=== PATIENT | male | born 1985 | race Asian ===

== ENCOUNTER 2020-06-06 13:30 | Inpatient (IN) | payer MEDICAID ==
[2020-06-06] VITALS (8 sets, daily range): BP systolic 113–126; BP diastolic 72–88
[~2020-06-06] VITALS: Ht 160 cm; Wt 78.1 kg
[2020-06-06] MEDS ORDERED: MORPHINE SULFATE 10 MG/ML VIAL. IV ONE (14:00)
[2020-06-06 14:29] LABS: BASO % 1 % (0-3); EOS # 0.1 x10^3/uL (0.0-0.7); EOS % 1 % (0-3); HEMATOCRIT 43.6 % (39.0-53.0); HEMOGLOBIN 15.1 g/dL (13.0-17.5); LYMPH # 2.9 x10^3/uL (1.0-4.8); LYMPH % 38 % (24-48); MEAN CORPUSCULAR HEMOGLOBIN 32 pg (25-35); MEAN CORPUSCULAR HGB CONC 35 g/dL (31-37); MEAN CORPUSCULAR VOLUME 91 fL (79-100); MONO # 0.5 x10^3/uL (0.0-1.1); MONO % 6 % (0-9); NEUT # 4.1 x10^3/uL (1.8-7.7); NEUT % 54 % (31-73); PLATELET COUNT 223 x10^3/uL (140-400); RED BLOOD COUNT 4.78 x10^6/uL (4.30-5.70); RED CELL DISTRIBUTION WIDTH 13.6 % (11.5-14.5); WHITE BLOOD COUNT 7.5 x10^3/uL (4.0-11.0)
[2020-06-06] MEDS ORDERED: HYDROmorphone 2 MG/ML VIAL IVP ONE ×3 (14:30→17:00)
[2020-06-06] MEDS ORDERED: IV NORMAL SALINE 1000ML BAG 1,000 ML IV ONE ×2 (14:30→16:45)
[2020-06-06] MEDS ORDERED: ONDANSETRON PF 4 MG/2 ML VIAL. IVP ONE (14:30)
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
[2020-06-06 14:40] LABS: CALCIUM 8.7 mg/dL (8.5-10.1); GFR 85.5; POTASSIUM 3.8 mmol/L (3.5-5.1)
[2020-06-06 14:41] LABS: PROTHROMBIN TIME PATIENT 11.8 SEC (11.7-14.0)
[2020-06-06 14:46] LABS: ALBUMIN 3.7 g/dL (3.4-5.0); TOTAL BILIRUBIN 0.2 mg/dL (0.2-1.0); TOTAL PROTEIN 7.3 g/dL (6.4-8.2)
[2020-06-06] MEDS ORDERED: fentaNYL PF VIAL 100 MCG/2 ML VIAL ONE ×2 (16:24→20:03)
[2020-06-06] MEDS ORDERED: LIDOCAINE 2% PF 5 ML VIAL. ONE (16:24)
[2020-06-06] MEDS ORDERED: PROPOFOL 10 MG/ML (20ML) VIAL. IV ONE (16:24)
[2020-06-06] MEDS ORDERED: MORPHINE SULFATE 4 MG/ML VIAL. IV PRN ×2 (16:45→20:30)
[2020-06-06] MEDS ORDERED: ONDANSETRON PF 4 MG/2 ML VIAL. IV PRN (16:45)
[2020-06-06] MEDS ORDERED: DIPH,PERTUSS(ACELL),TET VAC/PF 0.5 ML SYRINGE. VAX IM ONE (17:15)
[2020-06-06] MEDS ORDERED: BUPIVACAINE MPF 0.5% 30 ML VIAL. ONE (17:26)
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
[2020-06-06] MEDS ORDERED: ceFAZolin SODIUM IV Push 1 GM VIAL. IVP ONE (18:08)
[2020-06-06] MEDS ORDERED: SUCCINYLCHOLINE 200 MG/10 ML VIAL. ONE (18:15)
[2020-06-06] MEDS ORDERED: DEXAMETHASONE SOD PHOS 4 MG/ML VIAL ONE (18:28)
[2020-06-06] MEDS ORDERED: DESFLURANE 61 TO 120 MINUTES IH ONE (18:28)
[2020-06-06] MEDS ORDERED: ONDANSETRON PF 4 MG/2 ML VIAL. ONE (18:47)
[2020-06-06] MEDS ORDERED: IV RINGERS,LACTATED 1000ML 1,000 ML IV SCH (19:09)
[2020-06-06] MEDS ORDERED: PROCHLORPERAZINE 10 MG/2 ML VIAL. IV PRN (19:15)
[2020-06-06] MEDS ORDERED: LIDOCAINE 1% PF 2 ML VIAL. ID PRN (19:15)
--- NOTE | 2020-06-06 19:18 | NUR ---
Patient admitted to room 1809 and taken to the OR 1819.
[2020-06-06] MEDS ORDERED: MORPHINE SULFATE 10 MG/ML VIAL. ONE (19:19)
--- NOTE | 2020-06-06 19:47 | RAD ---
Intraoperative views of right wrist 06/06/2020. Reason for exam: Fixation. 0.1 minutes fluoroscopy time was used and 3 images are provided. These show placement of fixation plates and screws along the distal radius and ulna, with reduction of the displacement to more anatomic alignment. No other abnormality is seen. IMPRESSION: Placement of plates and screws with reduction of the displaced fractures. Electronically signed by: Bello John Jr., MD (06/06/2020 7:44 PM) DIANA
[2020-06-06] MEDS ORDERED: KETOROLAC 60 MG/2 ML VIAL. ONE ×2 (19:50→19:51)
[2020-06-06] MEDS: fentaNYL PF VIAL 100 MCG/2 ML VIAL IVP PRN ×2 (20:05→20:10)
[2020-06-06] MEDS ORDERED: fentaNYL PF VIAL 100 MCG/2 ML VIAL IVP PRN (20:15)
[2020-06-06] MEDS: HYDROmorphone 2 MG/ML VIAL IVP PRN ×4 (20:25→20:55)
[2020-06-06] MEDS ORDERED: HYDROmorphone 2 MG/ML VIAL ONE (20:25)
--- NOTE | 2020-06-06 21:04 | PDOC4 ---
Operative Note Operative Note Date of surgery: 06/06/2020 Preoperative diagnosis: Closed right both bone forearm fracture with complete displacement Postoperative diagnosis: Same Operative procedure: Operative reduction internal fixation with plate and screw fixation of right both bone forearm fracture Surgeon: Jean-Paul Anesthesia: General Estimated blood loss: 20 cc Tourniquet time: 70 minutes Complications: None Operative indications: Please see my dictated orthopedic consultation for detailed operative indications Operative text: Patient was identified procedure verified patient placed in the supine position on the operating table. After adequate amounts of general anesthesia were administered the right upper extremity was prepped and draped in standard sterile fashion with an upper arm tourniquet. After timeout was performed patient procedure identified and verified the right arm was exsanguinated with Esmarch bandage tourniquet inflated to 250 mmHg fracture was located under fluoroscopic guidance and a volar Kenny approach was carried out to the distal radius subperiosteal dissection was carried out and after anatomic reduction a 7 hole Marycarmen small frag reconstruction plate was used with nonlocking screws excellent compression was obtained and anatomic alignment was noted under fluoroscopic guidance. A longitudinal incision was then carried out centered on the ulnar fracture subperiosteal dissection was carried out and a 6- hole reconstruction plate was used and anatomic reduction again carried out with interfragmentary fixation and stabilization with remaining bicortical screws of appropriate length. Anatomic reduction was obtained under multiple fluoroscopic views and hardware placement and length was verified under fluoroscopic guidance. Thorough irrigation carried out normal saline solution subcutaneous closure accomplished with buried Vicryl suture skin closure with kevin sterile soft dressings were placed fingers were noted to be warm pink following deflati on of the tourniquet after total tourniquet time of approximately 70 minutes. Patient was returned to recovery room in stable condition having tolerated procedure well MARY FAIR MD Jun 06, 2020 21:04
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
[2020-06-07] VITALS (8 sets, daily range): BP systolic 102–138; BP diastolic 61–71
[2020-06-07] MEDS ORDERED: ONDANSETRON PF 4 MG/2 ML VIAL. IVP PRN (00:45)
[2020-06-07] MEDS ORDERED: oxyCODONE IR 5 MG TABLET PO PRN (00:45)
[2020-06-07] MEDS ORDERED: HYDROcodone/APAP 5/325MG 1 TAB TABLET PO PRN (00:45)
--- NOTE | 2020-06-07 01:07 | PDOC1 ---
History and Physical Date of Admission Date of Admission DATE: 06/06/20 TIME: 17:47 Identification/Chief Complaint Chief Complaint Right forearm fracture Source Source: Caregiver History of Present Illness History of Present Illness Patient is a 34 yo male who presents to the ED with right forearm injury sustained after rolling his golf cart earlier this afternoon. He report right forearm pain, 10/10, following the injury. Pain aggravated by movement, alleviated with pain medication. He denies head injury or loss of consciousness. Past Medical History Past Medical History None Past Surgical History Past Surgical History None Family History Family History None Social History Smoke: <1 pack per day ALCOHOL: none Drugs: None Current Problem List Problem List Problems Medical Problems: (1) Fracture, radius, distal Status: Acute (2) Ulna distal fracture Status: Acute Current Medications Current Medications Current Medications Morphine Sulfate (Morphine Sulfate) 5 mg 1X ONCE IV Last administered on 06/06/20at 14:38; Start 06/06/20 at 14:00; Stop 06/06/20 at 14:12; Status DC Sodium Chloride 1,000 ml @ 1,000 mls/hr 1X ONCE IV Last administered on 06/06/20at 14:39; Start 06/06/20 at 14:30; Stop 06/06/20 at 15:29; Status DC Hydromorphone HCl (Dilaudid) 1 mg 1X ONCE IVP Last administered on 06/06/20at 14:46; Start 06/06/20 at 14:30; Stop 06/06/20 at 14:31; Status DC Ondansetron HCl (Zofran) 4 mg 1X ONCE IVP Last administered on 06/06/20at 14:46; Start 06/06/20 at 14:30; Stop 06/06/20 at 14:31; Status DC Hydromorphone HCl (Dilaudid) 2 mg 1X ONCE IVP Last administered on 06/06/20at 15:32; Start 06/06/20 at 15:30; Stop 06/06/20 at 15:31; Status DC Propofol (Diprivan) 200 mg STK-MED ONCE IV ; Start 06/06/20 at 16:24; Stop 06/06/20 at 16:24; Status DC Lidocaine HCl (Lidocaine Pf 2% Vial) 5 ml STK-MED ONCE .ROUTE ; Start 06/06/20 at 16:24; Stop 06/06/20 at 16:24; Status DC Fentanyl Citrate (Fentanyl 2ml Vial) 100 mcg STK-MED ONCE .ROUTE ; Start 06/06/20 at 16:24; Stop 06/06/20 at 16:24; Status DC Ondansetron HCl (Zofran) 4 mg PRN Q8HRS PRN IV NAUSEA/VOMITING; Start 06/06/20 at 16:45; Stop 06/07/20 at 16:44 Morphine Sulfate (Morphine Sulfate) 4 mg PRN Q2HR PRN IV PAIN; Start 06/06/20 at 16:45; Stop 06/07/20 at 16:44 Sodium Chloride 1,000 ml @ 100 mls/hr 1X ONCE IV Last administered on 06/06/20at 17:06; Start 06/06/20 at 16:45; Stop 06/07/20 at 02:44 Diphtheria/ Tetanus/Acell Pertussis (ADACEL TDap SYRINGE) 0.5 ml ONCE ONCE VAX IM Last administered on 06/06/20at 17:09; Start 06/06/20 at 17:15; Stop 06/06/20 at 17:16; Status DC Hydromorphone HCl (Dilaudid) 1 mg 1X ONCE IVP Last administered on 06/06/20at 17:07; Start 06/06/20 at 17:00; Stop 06/06/20 at 17:03; Status DC Bupivacaine HCl (Sensorcaine Mpf 0.5%) 30 ml STK-MED ONCE .ROUTE Last administered on 06/06/20at 18:38; Start 06/06/20 at 17:26; Stop 06/06/20 at 17:26; Status DC Cefazolin Sodium (Ancef) 1 gm STK-MED ONCE IVP ; Start 06/06/20 at 18:08; Stop 06/06/20 at 18:08; Status DC Succinylcholine Chloride (Anectine) 200 mg STK-MED ONCE .ROUTE ; Start 06/06/20 at 18:15; Stop 06/06/20 at 18:15; Status DC Dexamethasone Sodium Phosphate (Decadron) 4 mg STK-MED ONCE .ROUTE ; Start 06/06/20 at 18:28; Stop 06/06/20 at 18:28; Status DC Desflurane (Suprane) 60 ml STK-MED ONCE IH ; Start 06/06/20 at 18:28; Stop 06/06/20 at 18:28; Status DC Ondansetron HCl (Zofran) 4 mg STK-MED ONCE .ROUTE ; Start 06/06/20 at 18:47; Stop 06/06/20 at 18:47; Status DC Cefazolin Sodium/ Dextrose 50 ml @ 100 mls/hr 1X ONCE IV Last administered on 06/06/20at 18:19; Start 06/06/20 at 19:30; Stop 06/06/20 at 19:59; Status DC Ringer's Solution 1,000 ml @ 30 mls/hr Q24H IV ; Start 06/06/20 at 19:09; Stop 06/07/20 at 07:08 Lidocaine HCl (Xylocaine-Mpf 1% 2ml Vial) 2 ml PRN 1X PRN ID PRIOR TO IV START; Start 06/06/20 at 19:15; Stop 06/07/20 at 19:14 Prochlorperazine Edisylate (Compazine) 5 mg PACU PRN PRN IV NAUSEA, MRX1 Last administered on 06/06/20at 20:31; Start 06/06/20 at 19:15; Stop 06/07/20 at 19:14 Morphine Sulfate (Morphine Sulfate) 10 mg STK-MED ONCE .ROUTE ; Start 06/06/20 at 19:19; Stop 06/06/20 at 19:19; Status DC Ketorolac Tromethamine (Toradol Im) 60 mg STK-MED ONCE .ROUTE ; Start 06/06/20 at 19:50; Stop 06/06/20 at 19:50; Status DC Ketorolac Tromethamine (Toradol Im) 60 mg STK-MED ONCE .ROUTE ; Start 06/06/20 at 19:51; Stop 06/06/20 at 19:51; Status DC Fentanyl Citrate (Fentanyl 2ml Vial) 100 mcg STK-MED ONCE .ROUTE ; Start 06/06/20 at 20:03; Stop 06/06/20 at 20:03; Status DC Fentanyl Citrate (Fentanyl 2ml Vial) 25 mcg PRN Q5MIN PRN IVP pain; Start 06/06/20 at 20:15; Stop 06/06/20 at 23:59; Status DC Fentanyl Citrate (Fentanyl 2ml Vial) 50 mcg PRN Q5MIN PRN IVP pain Last administered on 06/06/20at 20:10; Start 06/06/20 at 20:30; Stop 06/06/20 at 23:59; Status DC Morphine Sulfate (Morphine Sulfate) 4 mg PRN Q20MIN PRN IV severe pain Last administered on 06/06/20at 20:20; Start 06/06/20 at 20:30; Stop 06/07/20 at 02:00 Hydromorphone HCl (Dilaudid) 2 mg STK-MED ONCE .ROUTE ; Start 06/06/20 at 20:25; Stop 06/06/20 at 20:25; Status DC Hydromorphone HCl (Dilaudid) 0.5 mg PRN Q10MIN PRN IVP pain Last administered on 06/06/20at 20:55; Start 06/06/20 at 20:30; Stop 06/07/20 at 03:00 Ondansetron HCl (Zofran) 4 mg PRN Q6HRS PRN IVP NAUSEA/VOMITING; Start 06/07/20 at 00:45; Status UNV Oxycodone HCl (Roxicodone) 5 mg PRN Q3HRS PRN PO BREAKTHROUGH PAIN; Start 06/07/20 at 00:45; Status UNV Acetaminophen/ Hydrocodone Bitart (Lortab 5/325) 1 tab PRN Q4HRS PRN PO MILD PAIN 1-3; Start 06/07/20 at 00:45; Status UNV Acetaminophen/ Hydrocodone Bitart (Lortab 5/325) 2 tab PRN Q4HRS PRN PO MODERATE PAIN, SEVERE PAIN; Start 06/07/20 at 00:45; Status UNV Docusate Sodium (Colace) 100 mg BID PO ; Start 06/07/20 at 09:00; Status UNV Heparin Sodium (Porcine) (Heparin Sodium) 5,000 unit Q8HRS SQ ; Start 06/07/20 at 06:00; Status UNV Allergies Allergies: Coded Allergies: No Known Drug Allergies (Unverified , 06/06/20) ROS General: No: Chills, Fatigue PSYCHOLOGICAL ROS: No: Concentration difficultie, Hallucinations Eyes: No Blurry vision, No Loss of vision HEENT: No: Sore Throat, Tinnitus ALLERGY AND IMMUNOLOGY: No: Itchy/Watery Eyes, Nasal Congestion Hematological and Lymphatic: No: Bleeding Problems, Brusing Respiratory: No: Cough, Shortness of breath Cardiovascular: No Chest Pain, No Palpitations Gastrointestinal: No Nausea, No Vomiting Genitourinary: No Dysuria, No Hematuria Musculoskeletal: Yes Joint Pain, Yes Muscle Pain Neurological: No Bowel/Bladder ControlChng, No Headaches Skin: No Pruritus, No Rash Physical Exam General: Cooperative, mild distress HEENT: Atraumatic, PERRLA Lungs: Clear to auscultation, Normal air movement Heart: RRR, no jug vein distention Cardiovascular: S1, S2 Abdomen: Normal bowel sounds, Soft Extremities: Other (Right forearm tenderness and swelling) Skin: No rashes, No significant lesion Neuro: Normal tone, Sensation intact Psych/Mental Status: Mental status NL Vitals Vitals Vital Signs Date Time Temp Pulse Resp B/P (MAP) Pulse Ox O2 Delivery O2 Flow Rate FiO2 06/06/20 23:00 97.7 98 18 113/72 (86) 99 Room Air 97.7 06/06/20 21:25 2.0 Labs Labs Laboratory Tests Test 06/06/20 14:05 06/06/20 15:40 White Blood Count 7.5 x10^3/uL (4.0-11.0) Red Blood Count 4.78 x10^6/uL (4.30-5.70) Hemoglobin 15.1 g/dL (13.0-17.5) Hematocrit 43.6 % (39.0-53.0) Mean Corpuscular Volume 91 fL (79-100) Mean Corpuscular Hemoglobin 32 pg (25-35) Mean Corpuscular Hemoglobin Concent 35 g/dL (31-37) Red Cell Distribution Width 13.6 % (11.5-14.5) Platelet Count 223 x10^3/uL (140-400) Neutrophils (%) (Auto) 54 % (31-73) Lymphocytes (%) (Auto) 38 % (24-48) Monocytes (%) (Auto) 6 % (0-9) Eosinophils (%) (Auto) 1 % (0-3) Basophils (%) (Auto) 1 % (0-3) Neutrophils # (Auto) 4.1 x10^3/uL (1.8-7.7) Lymphocytes # (Auto) 2.9 x10^3/uL (1.0-4.8) Monocytes # (Auto) 0.5 x10^3/uL (0.0-1.1) Eosinophils # (Auto) 0.1 x10^3/uL (0.0-0.7) Basophils # (Auto) 0.0 x10^3/uL (0.0-0.2) Prothrombin Time 11.8 SEC (11.7-14.0) Prothromb Time International Ratio 0.9 (0.8-1.1) Activated Partial Thromboplast Time 28 SEC (24-38) Sodium Level 142 mmol/L (136-145) Potassium Level 3.8 mmol/L (3.5-5.1) Chloride Level 104 mmol/L (98-107) Carbon Dioxide Level 29 mmol/L (21-32) Anion Gap 9 (6-14) Blood Urea Nitrogen 25 mg/dL (8-26) Creatinine 1.0 mg/dL (0.7-1.3) Estimated GFR (Cockcroft-Gault) 85.5 BUN/Creatinine Ratio 25 (6-20) Glucose Level 224 mg/dL (70-99) Calcium Level 8.7 mg/dL (8.5-10.1) Total Bilirubin 0.2 mg/dL (0.2-1.0) Aspartate Amino Transf (AST/SGOT) 15 U/L (15-37) Alanine Aminotransferase (ALT/SGPT) 33 U/L (16-63) Alkaline Phosphatase 87 U/L (46-116) Total Protein 7.3 g/dL (6.4-8.2) Albumin 3.7 g/dL (3.4-5.0) Albumin/Globulin Ratio 1.0 (1.0-1.7) Ethyl Alcohol Level < 10 mg/dL (0-10) SARS-CoV-2 Antigen (Rapid) Negative (NEGATIVE) Laboratory Tests Test 06/06/20 14:05 06/06/20 15:40 White Blood Count 7.5 x10^3/uL (4.0-11.0) Red Blood Count 4.78 x10^6/uL (4.30-5.70) Hemoglobin 15.1 g/dL (13.0-17.5) Hematocrit 43.6 % (39.0-53.0) Mean Corpuscular Volume 91 fL (79-100) Mean Corpuscular Hemoglobin 32 pg (25-35) Mean Corpuscular Hemoglobin Concent 35 g/dL (31-37) Red Cell Distribution Width 13.6 % (11.5-14.5) Platelet Count 223 x10^3/uL (140-400) Neutrophils (%) (Auto) 54 % (31-73) Lymphocytes (%) (Auto) 38 % (24-48) Monocytes (%) (Auto) 6 % (0-9) Eosinophils (%) (Auto) 1 % (0-3) Basophils (%) (Auto) 1 % (0-3) Neutrophils # (Auto) 4.1 x10^3/uL (1.8-7.7) Lymphocytes # (Auto) 2.9 x10^3/uL (1.0-4.8) Monocytes # (Auto) 0.5 x10^3/uL (0.0-1.1) Eosinophils # (Auto) 0.1 x10^3/uL (0.0-0.7) Basophils # (Auto) 0.0 x10^3/uL (0.0-0.2) Prothrombin Time 11.8 SEC (11.7-14.0) Prothromb Time International Ratio 0.9 (0.8-1.1) Activated Partial Thromboplast Time 28 SEC (24-38) Sodium Level 142 mmol/L (136-145) Potassium Level 3.8 mmol/L (3.5-5.1) Chloride Level 104 mmol/L (98-107) Carbon Dioxide Level 29 mmol/L (21-32) Anion Gap 9 (6-14) Blood Urea Nitrogen 25 mg/dL (8-26) Creatinine 1.0 mg/dL (0.7-1.3) Estimated GFR (Cockcroft-Gault) 85.5 BUN/Creatinine Ratio 25 (6-20) Glucose Level 224 mg/dL (70-99) Calcium Level 8.7 mg/dL (8.5-10.1) Total Bilirubin 0.2 mg/dL (0.2-1.0) Aspartate Amino Transf (AST/SGOT) 15 U/L (15-37) Alanine Aminotransferase (ALT/SGPT) 33 U/L (16-63) Alkaline Phosphatase 87 U/L (46-116) Total Protein 7.3 g/dL (6.4-8.2) Albumin 3.7 g/dL (3.4-5.0) Albumin/Globulin Ratio 1.0 (1.0-1.7) Ethyl Alcohol Level < 10 mg/dL (0-10) SARS-CoV-2 Antigen (Rapid) Negative (NEGATIVE) Images Images FOREARM RIGHT History: Reason: pain rollcage on golf cart fell on it / Spl. Instructions: / History: Technique: 2 views right forearm Comparison: None. Findings: Acute comminuted the distal radial diaphysis fracture with displacement of the distal fracture fragment radially and posteriorly. Oblique right distal ulnar diaphysis fracture with more shortening and anterior displacement of the distal fracture fragment. There is adjacent soft tissue swelling. No additional fracture. Impression: 1. Acute displaced distal radial and ulnar shaft fractures. VTE Prophylaxis Ordered VTE Prophylaxis Devices: No VTE Pharmacological Prophylaxi: Yes Assessment/Plan Assessment/Plan Distal radius fracture Distal ulnar fracture Plan: Consult to Orthopedic Surgery, s/p operative reduction internal fixation with plate and screw Pain management, docusate bid PT/OT VTE prophylaxis Ful Code Justifications for Admission Other Justification CLAIR RYAN MD Jun 07, 2020 01:07
[2020-06-07] MEDS: HEPARIN for SUB-Q USE 5,000 UNIT/ML VIAL. SQ SCH ×3 (05:42→21:22)
[2020-06-07] MEDS: DOCUSATE SODIUM 100 MG CAPSULE. PO SCH ×2 (08:29→21:18)
[2020-06-07 09:00] LABS: BASO % 0 % (0-3); EOS % 0 % (0-3); HEMOGLOBIN 13.6 g/dL (13.0-17.5); LYMPH # 1.6 x10^3/uL (1.0-4.8); LYMPH % 12 % (24-48); MEAN CORPUSCULAR HEMOGLOBIN 31 pg (25-35); MEAN CORPUSCULAR HGB CONC 34 g/dL (31-37); MEAN CORPUSCULAR VOLUME 91 fL (79-100); MONO # 0.8 x10^3/uL (0.0-1.1); MONO % 6 % (0-9); NEUT % 82 % (31-73); PLATELET COUNT 213 x10^3/uL (140-400); RED BLOOD COUNT 4.38 x10^6/uL (4.30-5.70); RED CELL DISTRIBUTION WIDTH 13.6 % (11.5-14.5); WHITE BLOOD COUNT 13.5 x10^3/uL (4.0-11.0)
[2020-06-07 09:21] LABS: CALCIUM 8.1 mg/dL (8.5-10.1); CREATININE 0.6 mg/dL (0.7-1.3); GFR 154.2; POTASSIUM 3.8 mmol/L (3.5-5.1)
[2020-06-07] MEDS: HYDROcodone/APAP 5/325MG 1 TAB TABLET PO PRN (10:27)
[2020-06-07 13:46] LABS: % BANDS 5 % (0-9); % LYMPHS 10 % (24-48); % MONOS 4 % (0-10); % SEGS 81 % (35-66); PLT ESTIMATE ADEQUATE (ADEQUATE)
--- NOTE | 2020-06-07 14:26 | PDOC ---
PROGRESS NOTES Date of Service DATE: 06/07/20 TIME: 14:18 Subjective Subjective Problems overnight: Very sleepy today. Reportedly asked his nurse if the pain medication that he got reacts badly with cocaine which he has used in the past, unclear when Objective Vital Signs Vital Signs Date Time Temp Pulse Resp B/P (MAP) Pulse Ox O2 Delivery O2 Flow Rate FiO2 06/07/20 11:27 Room Air 06/07/20 11:06 98.6 85 16 110/71 (84) 97 98.6 06/06/20 21:25 2.0 Physical Exam Right hand and forearm moderately swollen as expected and he has some paresthesias primarily in the median nerve distribution. Dressings intact and he can flex and extend his fingers Labs Laboratory Tests Test 06/06/20 14:05 06/06/20 15:40 06/07/20 08:05 White Blood Count 7.5 x10^3/uL (4.0-11.0) 13.5 x10^3/uL (4.0-11.0) Red Blood Count 4.78 x10^6/uL (4.30-5.70) 4.38 x10^6/uL (4.30-5.70) Hemoglobin 15.1 g/dL (13.0-17.5) 13.6 g/dL (13.0-17.5) Hematocrit 43.6 % (39.0-53.0) 40.0 % (39.0-53.0) Mean Corpuscular Volume 91 fL (79-100) 91 fL (79-100) Mean Corpuscular Hemoglobin 32 pg (25-35) 31 pg (25-35) Mean Corpuscular Hemoglobin Concent 35 g/dL (31-37) 34 g/dL (31-37) Red Cell Distribution Width 13.6 % (11.5-14.5) 13.6 % (11.5-14.5) Platelet Count 223 x10^3/uL (140-400) 213 x10^3/uL (140-400) Neutrophils (%) (Auto) 54 % (31-73) 82 % (31-73) Lymphocytes (%) (Auto) 38 % (24-48) 12 % (24-48) Monocytes (%) (Auto) 6 % (0-9) 6 % (0-9) Eosinophils (%) (Auto) 1 % (0-3) 0 % (0-3) Basophils (%) (Auto) 1 % (0-3) 0 % (0-3) Neutrophils # (Auto) 4.1 x10^3/uL (1.8-7.7) 11.0 x10^3/uL (1.8-7.7) Lymphocytes # (Auto) 2.9 x10^3/uL (1.0-4.8) 1.6 x10^3/uL (1.0-4.8) Monocytes # (Auto) 0.5 x10^3/uL (0.0-1.1) 0.8 x10^3/uL (0.0-1.1) Eosinophils # (Auto) 0.1 x10^3/uL (0.0-0.7) 0.0 x10^3/uL (0.0-0.7) Basophils # (Auto) 0.0 x10^3/uL (0.0-0.2) 0.0 x10^3/uL (0.0-0.2) Prothrombin Time 11.8 SEC (11.7-14.0) Prothromb Time International Ratio 0.9 (0.8-1.1) Activated Partial Thromboplast Time 28 SEC (24-38) Sodium Level 142 mmol/L (136-145) 141 mmol/L (136-145) Potassium Level 3.8 mmol/L (3.5-5.1) 3.8 mmol/L (3.5-5.1) Chloride Level 104 mmol/L (98-107) 105 mmol/L (98-107) Carbon Dioxide Level 29 mmol/L (21-32) 28 mmol/L (21-32) Anion Gap 9 (6-14) 8 (6-14) Blood Urea Nitrogen 25 mg/dL (8-26) 16 mg/dL (8-26) Creatinine 1.0 mg/dL (0.7-1.3) 0.6 mg/dL (0.7-1.3) Estimated GFR (Cockcroft-Gault) 85.5 154.2 BUN/Creatinine Ratio 25 (6-20) Glucose Level 224 mg/dL (70-99) 114 mg/dL (70-99) Calcium Level 8.7 mg/dL (8.5-10.1) 8.1 mg/dL (8.5-10.1) Total Bilirubin 0.2 mg/dL (0.2-1.0) Aspartate Amino Transf (AST/SGOT) 15 U/L (15-37) Alanine Aminotransferase (ALT/SGPT) 33 U/L (16-63) Alkaline Phosphatase 87 U/L (46-116) Total Protein 7.3 g/dL (6.4-8.2) Albumin 3.7 g/dL (3.4-5.0) Albumin/Globulin Ratio 1.0 (1.0-1.7) Ethyl Alcohol Level < 10 mg/dL (0-10) SARS-CoV-2 Antigen (Rapid) Negative (NEGATIVE) Segmented Neutrophils % 81 % (35-66) Band Neutrophils % 5 % (0-9) Lymphocytes % 10 % (24-48) Monocytes % 4 % (0-10) Platelet Estimate Adequate (ADEQUATE) Laboratory Tests Test 06/06/20 15:40 06/07/20 08:05 SARS-CoV-2 Antigen (Rapid) Negative (NEGATIVE) White Blood Count 13.5 x10^3/uL (4.0-11.0) Red Blood Count 4.38 x10^6/uL (4.30-5.70) Hemoglobin 13.6 g/dL (13.0-17.5) Hematocrit 40.0 % (39.0-53.0) Mean Corpuscular Volume 91 fL (79-100) Mean Corpuscular Hemoglobin 31 pg (25-35) Mean Corpuscular Hemoglobin Concent 34 g/dL (31-37) Red Cell Distribution Width 13.6 % (11.5-14.5) Platelet Count 213 x10^3/uL (140-400) Neutrophils (%) (Auto) 82 % (31-73) Lymphocytes (%) (Auto) 12 % (24-48) Monocytes (%) (Auto) 6 % (0-9) Eosinophils (%) (Auto) 0 % (0-3) Basophils (%) (Auto) 0 % (0-3) Neutrophils # (Auto) 11.0 x10^3/uL (1.8-7.7) Lymphocytes # (Auto) 1.6 x10^3/uL (1.0-4.8) Monocytes # (Auto) 0.8 x10^3/uL (0.0-1.1) Eosinophils # (Auto) 0.0 x10^3/uL (0.0-0.7) Basophils # (Auto) 0.0 x10^3/uL (0.0-0.2) Segmented Neutrophils % 81 % (35-66) Band Neutrophils % 5 % (0-9) Lymphocytes % 10 % (24-48) Monocytes % 4 % (0-10) Platelet Estimate Adequate (ADEQUATE) Sodium Level 141 mmol/L (136-145) Potassium Level 3.8 mmol/L (3.5-5.1) Chloride Level 105 mmol/L (98-107) Carbon Dioxide Level 28 mmol/L (21-32) Anion Gap 8 (6-14) Blood Urea Nitrogen 16 mg/dL (8-26) Creatinine 0.6 mg/dL (0.7-1.3) Estimated GFR (Cockcroft-Gault) 154.2 Glucose Level 114 mg/dL (70-99) Calcium Level 8.1 mg/dL (8.5-10.1) Imaging Intraoperative fluoroscopic views show excellent anatomic reduction both bone forearm fracture with plate and screw fixation Assessment Assessment POD#1 ORIF right both bone forearm fracture Plan Plan of Care From an orthopedic standpoint, his fracture got excellent fixation and his mild paresthesia as expected particularly with the significant amount of preoperative swelling that was observed. I expect this to resolve with elevation and let him know postoperatively that he can do fine motor use with the hands such as eating writing typing but recommend against hard grasping pushing up with the extremity or any type of lifting over about 5 pounds. From a medical standpoint, his revelation of cocaine use is somewhat concerning. He appeared very tired and likely needs some further evaluation today of his condition before discharge. Justicifation of Admission Dx: Justifications for Admission: Justification of Admission Dx: Yes Fracture: Fracture MARY FAIR MD Jun 07, 2020 14:26
--- NOTE | 2020-06-07 15:08 | PDOC ---
[facility] PROGRESS NOTE Date of Service DOS: DATE: 06/07/20 TIME: 15:04 Chief Complaint Chief Complaint Right distal radius and ulnar Fx s/p ORIF 06/06/20 Hx of cocaine use Appreciate orthopedic recommendations Elevate extremity Recommend against hard grasping pushing up with the extremity or any type of lifting over about 5 pounds. Ativan PRN for agitation if there is any signs/symptoms of cocaine withdrawal consult PAT team for cocaine use Ambulation and Heparin for DVT prophylaxis Disposition inpatient care for pain control and postoperative observation MPOA- History of Present Illness History of Present Illness 34 yo male who presents to the ED with right forearm injury sustained after rolling his golf cart earlier this afternoon. He report right forearm pain, 10/1 0, following the injury. Pain aggravated by movement, alleviated with pain medication. He denies head injury or loss of consciousness. 06/07/20 No acute events overnight. Patient pain is not controlled and is 10/10. Patient has asked several times if pain medications interfere with cocaine. Patient seen and examined. Patient's chart was reviewed and case was discussed with the RN several times. Vitals/I&O Vitals/I&O: Vital Signs Date Time Temp Pulse Resp B/P (MAP) Pulse Ox O2 Delivery O2 Flow Rate FiO2 06/07/20 11:27 Room Air 06/07/20 11:06 98.6 85 16 110/71 (84) 97 98.6 06/06/20 21:25 2.0 I & O 06/06/20 06/06/20 06/07/20 14:59 22:59 06:59 Intake Total 2400 ml 0 ml Output Total 20 ml Balance 2380 ml 0 ml Physical Exam General: Cooperative, mild distress Abdomen: Normal bowel sounds, Soft Extremities: Other (Right forearm tenderness and swelling) Skin: No rashes, No significant lesion Labs Labs: Laboratory Tests Test 06/06/20 15:40 06/07/20 08:05 SARS-CoV-2 Antigen (Rapid) Negative (NEGATIVE) White Blood Count 13.5 x10^3/uL (4.0-11.0) Red Blood Count 4.38 x10^6/uL (4.30-5.70) Hemoglobin 13.6 g/dL (13.0-17.5) Hematocrit 40.0 % (39.0-53.0) Mean Corpuscular Volume 91 fL (79-100) Mean Corpuscular Hemoglobin 31 pg (25-35) Mean Corpuscular Hemoglobin Concent 34 g/dL (31-37) Red Cell Distribution Width 13.6 % (11.5-14.5) Platelet Count 213 x10^3/uL (140-400) Neutrophils (%) (Auto) 82 % (31-73) Lymphocytes (%) (Auto) 12 % (24-48) Monocytes (%) (Auto) 6 % (0-9) Eosinophils (%) (Auto) 0 % (0-3) Basophils (%) (Auto) 0 % (0-3) Neutrophils # (Auto) 11.0 x10^3/uL (1.8-7.7) Lymphocytes # (Auto) 1.6 x10^3/uL (1.0-4.8) Monocytes # (Auto) 0.8 x10^3/uL (0.0-1.1) Eosinophils # (Auto) 0.0 x10^3/uL (0.0-0.7) Basophils # (Auto) 0.0 x10^3/uL (0.0-0.2) Segmented Neutrophils % 81 % (35-66) Band Neutrophils % 5 % (0-9) Lymphocytes % 10 % (24-48) Monocytes % 4 % (0-10) Platelet Estimate Adequate (ADEQUATE) Sodium Level 141 mmol/L (136-145) Potassium Level 3.8 mmol/L (3.5-5.1) Chloride Level 105 mmol/L (98-107) Carbon Dioxide Level 28 mmol/L (21-32) Anion Gap 8 (6-14) Blood Urea Nitrogen 16 mg/dL (8-26) Creatinine 0.6 mg/dL (0.7-1.3) Estimated GFR (Cockcroft-Gault) 154.2 Glucose Level 114 mg/dL (70-99) Calcium Level 8.1 mg/dL (8.5-10.1) Assessment and Plan Assessmemt and Plan Problems Medical Problems: (1) Fracture, radius, distal Status: Acute (2) Ulna distal fracture Status: Acute Comment Review of Relevant I have reviewed the following items cecilia (where applicable) has been applied. Medications: Current Medications Medications (Trade) Dose Ordered Sig/Shanon Route PRN Reason Start Time Stop Time Status Last Admin Dose Admin Hydromorphone HCl (Dilaudid) 2 mg 1X ONCE IVP 06/06/20 15:30 06/06/20 15:31 DC 06/06/20 15:32 Sodium Chloride 1,000 ml @ 100 mls/hr 1X ONCE IV 06/06/20 16:45 06/07/20 02:44 DC 06/06/20 17:06 Diphtheria/ Tetanus/Acell Pertussis (ADACEL TDap SYRINGE) 0.5 ml ONCE ONCE VAX IM 06/06/20 17:15 06/06/20 17:16 DC 06/06/20 17:09 Hydromorphone HCl (Dilaudid) 1 mg 1X ONCE IVP 06/06/20 17:00 06/06/20 17:03 DC 06/06/20 17:07 Bupivacaine HCl (Sensorcaine Mpf 0.5%) 30 ml STK-MED ONCE .ROUTE 06/06/20 17:26 06/06/20 17:26 DC 06/06/20 18:38 Cefazolin Sodium/ Dextrose 50 ml @ 100 mls/hr 1X ONCE IV 06/06/20 19:30 06/06/20 19:59 DC 06/06/20 18:19 Prochlorperazine Edisylate (Compazine) 5 mg PACU PRN PRN IV NAUSEA, MRX1 06/06/20 19:15 06/07/20 19:14 06/06/20 20:31 Fentanyl Citrate (Fentanyl 2ml Vial) 50 mcg PRN Q5MIN PRN IVP pain 06/06/20 20:30 06/06/20 23:59 DC 06/06/20 20:10 Morphine Sulfate (Morphine Sulfate) 4 mg PRN Q20MIN PRN IV severe pain 06/06/20 20:30 06/07/20 02:00 DC 06/06/20 20:20 Hydromorphone HCl (Dilaudid) 0.5 mg PRN Q10MIN PRN IVP pain 06/06/20 20:30 06/07/20 03:00 DC 06/06/20 20:55 Acetaminophen/ Hydrocodone Bitart (Lortab 5/325) 2 tab PRN Q4HRS PRN PO MODERATE PAIN, SEVERE PAIN 06/07/20 00:45 06/07/20 10:27 Heparin Sodium (Porcine) (Heparin Sodium) 5,000 unit Q8HRS SQ 06/07/20 06:00 06/07/20 05:42 Justifications for Admission Other Justification BRUNA ESPINOZA MD Jun 07, 2020 15:08
[2020-06-08 03:00] VITALS: BP 133/88
[2020-06-08] MEDS: HYDROcodone/APAP 5/325MG 1 TAB TABLET PO PRN (03:16)
[2020-06-08] MEDS: HEPARIN for SUB-Q USE 5,000 UNIT/ML VIAL. SQ SCH ×2 (05:54→14:00)
[2020-06-08 07:00] VITALS: BP 142/77
[2020-06-08] MEDS: DOCUSATE SODIUM 100 MG CAPSULE. PO SCH (08:29)
--- NOTE | 2020-06-08 10:00 | NUR ---
EDMUND following. Discussed with RN, pt from home with , room air, regular diet. PT/OT recommending home. Dr. Mathur wanting pt to be seen by PAT for cocaine use. EDMUND consulted Talisha GRAJEDA will visit with pt today. EDMUND will continue to follow. Addendum: 06/08/20 at 1309 by ROSEANN SHAFFER Pt cleared by PAT. Pt declined all resources. RN and Dr. Mathur notified.
[2020-06-08 11:00] VITALS: BP 119/78
--- NOTE | 2020-06-08 14:13 | DISCH ---
DISCHARGE INSTRUCTIONS Condition on Discharge Condition on Discharge: Stable Activity After Discharge Activity Instructions for Disc: Activity as tolerated Lifting Instructions after Dis: Do not lift >10 pounds Driving Instructions after Dis: Do not drive today Weight Bearing Status after Di: As tolerated Diet after Discharge Diet after Discharge: Regular Contacting the DR. after DC Call your doctor for: If your condition worsens Follow-Up Follow up with: Orthopedic surgery within 2 weeks for postop wound check Follow Up With: PCP within 1 week of discharge BRUNA ESPINOZA MD Jun 08, 2020 14:13
[2020-06-08 15:00] VITALS: BP 125/84
[2020-06-08] MEDS ORDERED: oxyCODONE IR 5 MG TABLET PO PRN (15:45)
[2020-06-08] MEDS ORDERED: IBUPROFEN 200 MG TABLET. PO PRN (15:45)
--- NOTE | 2020-06-08 16:32 | PDOC ---
ORTHO PROGRESS NOTES DATE: 06/08/20 TIME: 16:30 Subjective Patient states that the pain is mostly controlled today. Post-op Day: 2 Procedure ORIF with plate fixation and screws of both bone forearm fracture. Vitals Vital Signs Date Time Temp Pulse Resp B/P (MAP) Pulse Ox O2 Delivery O2 Flow Rate FiO2 06/08/20 15:51 Room Air 06/08/20 15:00 98.3 94 18 125/84 (98) 99 98.3 Labs Laboratory Tests Test 06/07/20 08:05 White Blood Count 13.5 x10^3/uL (4.0-11.0) Red Blood Count 4.38 x10^6/uL (4.30-5.70) Hemoglobin 13.6 g/dL (13.0-17.5) Hematocrit 40.0 % (39.0-53.0) Mean Corpuscular Volume 91 fL (79-100) Mean Corpuscular Hemoglobin 31 pg (25-35) Mean Corpuscular Hemoglobin Concent 34 g/dL (31-37) Red Cell Distribution Width 13.6 % (11.5-14.5) Platelet Count 213 x10^3/uL (140-400) Neutrophils (%) (Auto) 82 % (31-73) Lymphocytes (%) (Auto) 12 % (24-48) Monocytes (%) (Auto) 6 % (0-9) Eosinophils (%) (Auto) 0 % (0-3) Basophils (%) (Auto) 0 % (0-3) Neutrophils # (Auto) 11.0 x10^3/uL (1.8-7.7) Lymphocytes # (Auto) 1.6 x10^3/uL (1.0-4.8) Monocytes # (Auto) 0.8 x10^3/uL (0.0-1.1) Eosinophils # (Auto) 0.0 x10^3/uL (0.0-0.7) Basophils # (Auto) 0.0 x10^3/uL (0.0-0.2) Segmented Neutrophils % 81 % (35-66) Band Neutrophils % 5 % (0-9) Lymphocytes % 10 % (24-48) Monocytes % 4 % (0-10) Platelet Estimate Adequate (ADEQUATE) Sodium Level 141 mmol/L (136-145) Potassium Level 3.8 mmol/L (3.5-5.1) Chloride Level 105 mmol/L (98-107) Carbon Dioxide Level 28 mmol/L (21-32) Anion Gap 8 (6-14) Blood Urea Nitrogen 16 mg/dL (8-26) Creatinine 0.6 mg/dL (0.7-1.3) Estimated GFR (Cockcroft-Gault) 154.2 Glucose Level 114 mg/dL (70-99) Calcium Level 8.1 mg/dL (8.5-10.1) Notes Awake and alert Assessment and Plan Postop day #2 status post ORIF right radius and ulna fracture with plate and screw fixation. Motor and sensation intact distally and right upper extremity fingers and wrist Dressing is dry and intact. Pain control per admitting physician. Follow-up in clinic with orthopedics in 10 to 14 days. MELODIE OVERTON APRN Jun 08, 2020 16:32
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
== END 2020-06-08 17:10 | disposition home or self-care (01) | DRG 512 ==
LOC: ER 13:30 → 4 NORTH 15:50
PROVIDERS: ADMIT Family Medicine; ATTEND Family Medicine
PROC: 0PSK04Z Reposition Right Ulna with Internal Fixation Device, Open Approach (ICD-10-PCS; 2020-06-06)
PROC: 0PSH04Z Reposition Right Radius with Internal Fixation Device, Open Approach (ICD-10-PCS; principal; 2020-06-06 18:00)
DX: S52.601A Unspecified fracture of lower end of right ulna, initial encounter for closed fracture (principal); S52.501A Unspecified fracture of the lower end of right radius, initial encounter for closed fracture; F14.90 Cocaine use, unspecified, uncomplicated; F17.210 Nicotine dependence, cigarettes, uncomplicated; Y93.53 Activity, golf; Y93.89 Activity, other specified; Y92.89 Other specified places as the place of occurrence of the external cause; Y99.8 Other external cause status; Z20.828 Contact with and (suspected) exposure to other viral communicable diseases
CPT/HCPCS: 36415; 73090; 76000; 80048; 80053; 85007; 85025; 85610; 85730; 86850; 86900; 86901; 87426; 90471; 90715; 96361; 96374; 96375; 96376; 99285; A7015; C1713; G0480; J0330; J0690; J0780; J1100; J1170; J1644; J1885; J2270; J2405; J2704; J3010; J3490; J7030; J7120; 97116-GP; 97530-GP; 97535-GO; G0378; U0003-CS